=== PATIENT | male | born 1955 | race Two or more races ===

== ENCOUNTER 2021-11-13 09:49 | Emergency (ER) | payer SELFPAY ==
[~2021-11-13] VITALS: Ht 170.2 cm; Wt 81.2 kg
--- NOTE | 2021-11-13 09:49 | NUR ---
PT SANTY 38 FROM HOME C/O CHRONIC BACK PAIN. PRESCRIBED MED NOT WORKING PER PT. 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 WILL CONTINUE TO MONITOR.
--- NOTE | 2021-11-13 09:58 | NUR ---
AT BEDSIDE FOR EVAL.
[2021-11-13] MEDS ORDERED: KETOROLAC TROMETHAMINE INJ 30 MG/ML VIAL ONE (10:11)
[2021-11-13] MEDS ORDERED: KETOROLAC TROMETHAMINE INJ 60 MG/2 ML VIAL IM ONE (10:30)
[2021-11-13] MEDS ORDERED: NAPR-1009 PO (10:47)
[2021-11-13] MEDS ORDERED: CAPS1ADH5 TP (10:47)
[2021-11-13 10:54] VITALS: BP 148/86
--- NOTE | 2021-11-13 10:54 | NUR ---
Patient discharged to home in stable condition. Written and verbal after care instructions given. Patient verbalizes understanding of instruction.
== END 2021-11-13 11:00 | disposition home or self-care (01) ==
LOC: ER 09:52
DX: G89.29 Other chronic pain (principal); M54.9 Dorsalgia, unspecified
CPT/HCPCS: 96372; 99283; J1885